=== PATIENT | male | born 1960 | race Caucasian/White ===

== ENCOUNTER 2017-10-20 09:21 | Outpatient (CLI) | payer OTHER ==
--- NOTE | 2017-10-20 18:49 | MRI Report ---
EXAM: MRI LUMBAR SPINE WITHOUT CONTRAST EXAM DATE: 10/20/2017 09:57 AM. CLINICAL HISTORY: Pain. Chronic low back pain with left-sided sacroiliac joint, left hip, left groin and left thigh pain. COMPARISON: None. TECHNIQUE: Multiplanar, multisequence T1-weighted and fluid-sensitive sequences of the lumbar spine f rom T12 to S1 without contrast. Other: None. FINDINGS: Spinal Cord: The conus terminates at L1. The conus medullaris and cauda equina are unremarkable. Alignment: No scoliosis or spondylolisthesis. Bone Marrow: Five [id number] lumbar vertebral bodies are assumed. No gross fractures or bone les ions. No bone marrow edema. Disk Levels/Facets: T12-L1: Unremarkable. L1-L2: Central posterior 2 mm disk protrusion/extrusion with mild ventral effacement of the thecal sa c. Negative for spinal canal stenosis or foraminal stenosis. L2-L3: Mild disk degeneration. Diffuse mild disk bulge. L3-L4: Moderate disk degeneration. Right lateral 2 mm disk protrusion which contacts exiting right L3 nerve root. Mild left foraminal stenosis from facet hypertrophy and foraminal disk bulge. L4-L5: Diffuse disk bulge. Mild to moderate left and mild right foraminal stenosis from diffuse disk bulge and facet degenerative hypertrophy. Mild disk degeneration. Mild facet joint arthrosis. L5-S1: Unremarkable. Musculature: Normal. No edema or fatty atrophy. Other: The partially visualized retroperitoneum is unremarkable. 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 IMPRESSION: 1. Negative for central spinal canal stenosis. 2. Small left 3 mm central posterior focal disk protrusion/extrusion L1-L2 interspace with mild ventr al effacement of thecal sac. 3. Mild to moderate left and mild right L4-L5 foraminal stenosis from diffuse disk bulge and facet de generative hypertrophy. 4. 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 Comment: The following findings are so common in adults without low back pain that while we report th eir presence, they must be interpreted with caution and in the context of the clinical situation. (Re jules Jackson et al, Spine 2001) Prevalence of findings in patients without low back pain: Disk degeneration (any evidence): 92% Disk desiccation/T2 signal loss: 83% Disk height loss: 56% Disk bulge: 64% Disk protrusion: 32% Annular tear/high intensity zone: 38% [facility] Referring Provider Line: [phone] SITE ID: [id number]
== END 2017-10-20 09:22 | disposition home or self-care (01) ==
LOC: DI 09:21
PROVIDERS: ATTEND Family Medicine
DX: M51.26 Other intervertebral disc displacement, lumbar region (principal); M51.36 Other intervertebral disc degeneration, lumbar region; M47.896 Other spondylosis, lumbar region; M43.28 Fusion of spine, sacral and sacrococcygeal region
CPT/HCPCS: 72148

== ENCOUNTER 2023-11-04 08:00 | Outpatient (CLI) | payer OTHER | END 2023-11-04 08:01 | disposition home or self-care (01) | LOC: LAB.R 08:00 | PROVIDERS: ATTEND Nurse Practitioner | DX: L08.89 Other specified local infections of the skin and subcutaneous tissue (principal) | CPT/HCPCS: 87070; 87205 ==

== ENCOUNTER 2023-11-25 08:00 | Outpatient (CLI) | payer OTHER | END 2023-11-25 08:01 | disposition home or self-care (01) | LOC: LAB.R 08:00 | PROVIDERS: ATTEND Nurse Practitioner | DX: L01.00 Impetigo, unspecified (principal) | CPT/HCPCS: 87070; 87205 ==